=== PATIENT | male | born 1960 | race African-American/Black ===

== ENCOUNTER 2017-02-01 14:41 | Emergency (ER) | payer OTHER ==
[~2017-02-01] VITALS: Ht 177.8 cm; Wt 80.3 kg
[~2017-02-01 14:41] MED LIST: BLOOD PRESSURE MED PO; KEFLEX 500MG.500 MG PO
[2017-02-01] MEDS ORDERED: ATENOLOL50 M1 PO (15:04)
[2017-02-01] MEDS ORDERED: PANTOPRAZOLE SO40 M1 PO (15:04)
[2017-02-01] MEDS ORDERED: DULOXETINE HYDR30 MG PO (15:06)
[2017-02-01 15:36] LABS: HEMOGLOBIN 17.4 g/dL (14.1-18.0); LYMPH # 2.5 K/mm3 (0.7-4.5); LYMPH % 16.8 % (10-50)
--- NOTE | 2017-02-01 15:36 | Emergency Room Report ---
History of Present Illness Time Seen by [id number] Presenting Problem in Triage Pt arrived:Walked Presenting Problem:PT STATES HE HAS BEEN VOMITING SINCE SATURDAY, SEEN IN HIS OFFICE GOT A SHOT OF PHENERGAN AND SENT HOME WITH A PRESCRIPTION THAT IS NOT HELPING ALONG WITH CARAFATE. 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 N Clinical Suspician of Infection? N Mental Status: 1 - Regular (Normal Baseline) Sepsis Risk:Low Sepsis Risk Have you (or family members/close friends) recently traveled outside the [place]? N If Yes, where/when: Have you had exposure to infectious disease within the past month? N TB? Other? Specify: Intermittent vomiting and epigastric pain for four days, seen by PCP, sent here for evaluation. Ate chicken noodle soup two hours ago. 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 Pain nonradiating. No urinary sx. No blood from above or below. Has a remote hx PUD and his PCP has been trying to schedule an EGD for him in the next few weeks. No flu sx. ALLERGIES Coded Allergies: adhesive (Mild, 02/01/17) Home Medications Active Scripts CEPHALEXIN (Keflex 500MG Capsule) 500 MG PO QID 10 Days Prov: 10/12/12 Reported Medications [BLOOD PRESSURE MED] 10 MG PO DAILY Atenolol 50 MG PO DAILY #30 Pantoprazole Sodium 40 MG PO DAILY #30 DULOXETINE HCL (Duloxetine Hydrochloride) 30 MG PO DAILY #30 History Medical History General CAD? No Angina: No [place]: No Hypertension? Yes Hyperlipidemia? No CHF? No DVT? No PE? No COPD? No Asthma? No Anemia? No GERD? No Gastric ulcers? Yes GI Bleed? No Hernia? No Thyroid Problems? No Hypothyroidism? No CVA? No Seizures? No Diabetes? No Renal Insuffiency? No End Stage Renal Disease? No UTI? No Stones? No BPH? No GB Disease: No Nephritic Syndrome? No Asplenia? No Hepatitis? No Sickle Cell Disease? No Arthritis? No Migraines? No Cataracts? No Glaucoma? No MRSA? No HIV? No TB? No Anxiety? No Depression? Yes Cancer? No More? No Immunization Hx DT/Tetanus 10/12/12 Surgical Hx Previous Surgery?Y ROTATOR CUFF SPINE FUSION Social History Smoking Hx Smoker: Never Smoker Tobacco: No Alcohol Alcohol: No Review of Systems All Other Systems Reviewed and Negative Gastrointestinal see HPI Physical Exam Vital Signs Vital Signs Date Time Temp Pulse Resp B/P Pulse O2 O2 Flow FiO2 Ox Delivery Rate 02/01 1659 99.0 67 18 156/88 99 02/01 1455 100.1 77 18 159/91 100 General Appearance normal appearance, WD/WN, no apparent distress Eye Exam - bilateral eye normal exam, bilateral eye PERRL, bilateral eye EOMI Neck normal inspection, non-tender, supple, full range of motion Respiratory Status Yes: trachea midline, chest symmetrical, non tender chest. No: respiratory distress, tender on palpation, use of accessory muscles, pain on inspiration, pain on expiration, productive cough, non productive cough. Lung Sounds bilateral: normal breath sounds, lungs clear. Cardiovascular normal exam, regular rate/rhythm, no peripheral edema, no gallop, no JVD, no murmur, no rub, normal peripheral pulses Gastrointestinal normal bowel sounds, normal exam, non tender, soft, no organomegaly, no pulsatile mass, no guarding, no rebound (neg Cisneros's) Extremities non-tender, normal range of motion, normal inspection, normal capillary refill, no calf tenderness, no pedal edema Strength 5 Upper Ext (L), 5 Upper Ext (R), 5 Lower Ext (L), 5 Lower Ext (R) Neurologic alert, normal exam, no motor/sensory deficits, oriented x 3 Glascow Coma Scale Glascow Coma Scale Response Value EYE response: 4 Spontaneously 4 MOTOR response: 6 OBEYS 6 VERBAL response: 5 Oriented & Converses 5 Total 15 Skin intact, normal color Medical Decision Making LABS/Meds/Orders Pt receiving controlled substance in ED? No Results/Orders Laboratory Tests 02/01/17 1610: Urine Color YELLOW, Urine Appearance CLEAR, Urine pH 6.0, Ur Specific [place] <= 1.005, Urine Protein NEGATIVE, Urine Ketones 1+ H, Urine Blood NEGATIVE, Urine Nitrate NEGATIVE, Urine Bilirubin NEGATIVE, Urine Urobilinogen 0.2, Ur Leukocyte Esterase NEGATIVE, Urine RBC OCC, Urine WBC NONE, Ur Squamous Epith Cells NONE, Urine Bacteria TRACE, Urine Glucose NEGATIVE 02/01/17 1515: Sodium 133 L, Potassium 3.4 L, Chloride 95 L, Carbon Dioxide 28, BUN 8, Creatinine 1.2, Estimated Creat Clear 76, Estimated GFR (MDRD) 62, Glucose 107 H, Calcium 9.8, Total Bilirubin 1.4 H, AST 25, ALT 31, Alkaline Phosphatase 152 H, Total Protein 9.0 H, Albumin 4.8, Globulin 4.2 H, Albumin/Globulin Ratio 1.1, Lipase 96, WBC 14.8 H, RBC 5.49, Hgb 17.4, Hct 50.8, MCV 92.6, RDW 12.8, Plt Count 383, MPV 6.7 L, Gran % 75.5, Gran # 11.2 H, Lymphocytes % 16.8, Monocytes % 6.4, Eosinophils % 1.0, Basophils % 0.4, Lymphocytes # 2.5, Monocytes # 1.0, Eosinophils # 0.2, Basophils # 0.1, PUBS MCHC 34.3, MCH 31.8 H Current Medication Orders Sig/New Start time Last Medication Dose Route Stop Time Status Admin Pantoprazole Sodium 0 .STK-MED ONE 02/01 1555 DC IV Pantoprazole Sodium 40 MG ONCE ONE 02/01 1545 DC 02/01 IV 02/01 1546 1557 Sodium Chloride 10 ML PRN PRN 02/01 1545 AC IV 02/02 1531 Sodium Chloride 10 ML ONCE ONE 02/01 1545 DC IV 02/01 1546 Ondansetron HCl 0 .STK-MED ONE 02/01 1511 DC .ROUTE Sodium Chloride 1,000 ML .STK-MED ONE 02/01 1511 DC IV Orders Procedure Date/time Status DIET-NOTHING BY MOUTH 02/01 D Active INFLUENZA A&B ANTIGENS 02/[address] ABD/PELVIS REQ 02/01 1531 Complete IV SALINE LOCK 02/01 1531 Active URINALYSIS/COMPLETE 02/01 1531 Complete LIPASE 02/01 1531 Complete CBC WITH AUTO DIFF 02/01 1531 Complete CHEM 12 PROFILE 02/01 1531 Complete XRAY/CT/US XRAY/CT/US CT abdomen, pelvis (reflux neg acute) Progress ED Progress Notes 1 Date 02/01/17 Time 1719 Comment patient feeling much better s/p Protonix IV. ED Progress Notes 2 Date 02/01/17 Time 1719 Comment Keeping down PO fluids Departure Departure Time of Disposition 171 Disposition DC Home or Self Care(routine) Clinical Impression Primary Impression: Vomiting Qualifiers: Vomiting type: unspecified Vomiting Intractability: non-intractable Nausea presence: without nausea Qualified Code: R11.11 - Vomiting without nausea Secondary Impressions: Epigastric pain Condition STABLE Referrals JOHN GUTIERREZ MD,A.C. (Family) Patient Instructions DI for Epigastric Pain Additional Instructions See Dr. Saucedo for follow up as well as Dr. Gutierrez, GI specialist. Discharge Counseling Counseled pt/family regarding diagnosis, test results, medications/RX, home care, follow up needs Prescriptions Current Visit Scripts Pantoprazole Sodium (Protonix) 40 MG PO DAILY #10 PKT generic ok Ondansetron (Zofran 4MG Odt) 4 MG PO Q6HP PRN NAUSEA AND VOMITING #10 ODT ED Critical Care Critical Care No at 172
--- NOTE | 2017-02-01 16:23 | RADIOLOGY REPORT PS360 ---
CT ABD PELVIS W/O CONTRAST CLINICAL INDICATION: EPIGASTRIC PAIN,VOMITING ORDERING PHYSICIAN: Pauline Herrera MD PATIENT AGE: 57 years COMPARISON: None TECHNIQUE: Axial images obtained with sagittal and coronal reformats. PROCEDURE: Oral Contrast: None IV Contrast: None . FINDINGS: Lung bases are clear. There is a small amount of gas in the distal esophagus which may be significant reflux. The liver, gallbladder, spleen, adrenal glands, and pancreas are unremarkable. No intestinal obstruction or free air. Unremarkable appendix. No evidence of diverticulitis. No renal or ureteral calculi. No hydronephrosis or hydroureter There are small bilateral inguinal hernias containing fat. Small amount of the left lateral and interest but the bladder protrudes into the left inguinal hernia. There is degenerative disc disease at L4-L5 and L5-S1 with bilateral foraminal narrowing at L4-L5. IMPRESSION: 1. No acute abdominal or pelvic pathology. 2. Small amount of gas in the distal esophagus which may be seen with reflux. 3. Small bilateral hernias. The lateral and inferior aspect of the urinary bladder on the left protrudes into the left inguinal hernia
[2017-02-01 16:28] LABS: URINE BILIRUBIN - DIPSTICK NEGATIVE (NEG); URINE BLOOD NEGATIVE (NEG)
[2017-02-01] MEDS ORDERED: PROTONIX40 MG/PACK PO (17:22)
[2017-02-01] MEDS ORDERED: ZOFRAN ODT4 MG PO (17:22)
[2017-02-01 17:55] VITALS: BP 156/88
== END 2017-02-01 17:56 | disposition home or self-care (01) ==
LOC: ER 14:41
PROVIDERS: Emergency Medicine
DX: R11.11 Vomiting without nausea (principal); R10.13 Epigastric pain; I10 Essential (primary) hypertension
CPT/HCPCS: J2405

== ENCOUNTER → 2017-02-11 | Outpatient (CLI) | payer OTHER ==
[~2017-02-11] MED LIST changes: +ATENOLOL50 M1 PO; +DULOXETINE HYDR30 MG PO; +PANTOPRAZOLE SO40 M1 PO; +PROTONIX40 MG/PACK PO; +ZOFRAN ODT4 MG PO
--- NOTE | 2017-02-11 13:13 | RADIOLOGY REPORT PS360 ---
UGI SERIES W/ AIR HISTORY: NAUSEA AND VOMITING ORDERING PHYSICIAN: Zulma Hernandez APRN PATIENT AGE: 57 years COMPARISON: None FINDINGS: The esophagus, stomach, and duodenum have an unremarkable appearance. There is no evidence of hiatal hernia. No ulcer or mass evident. No mucosal abnormalities apparent. There is normal peristalsis. The duodenal C-loop is nondisplaced. There was a moderate amount of gastroesophageal reflux FLUOROSCOPY TIME : 1 minute and 29 seconds. IMPRESSION: Moderate gastroesophageal reflux otherwise negative upper GI
== END ==
LOC: RAD 10:51
DX: R11.2 Nausea with vomiting, unspecified (principal)